=== PATIENT | female | born 1980 | race Caucasian/White ===

== ENCOUNTER 2021-06-29 09:05 | Day surgery (SDC) | payer MEDICARE ==
[2021-06-29] MEDS ORDERED: Depo-Medrol 40 MG/ML IM ONE (09:06)
[2021-06-29] MEDS ORDERED: LIDOCAINE HCL 2% 100 MG/5 ML IJ ONE (09:06)
[2021-06-29] MEDS ORDERED: Versed 2 MG/2 ML Injection ONE (10:00)
[2021-06-29] MEDS ORDERED: DIPRIVAN 200 MG/20 ML IV ONE (10:00)
[2021-06-29] MEDS ORDERED: Lactated Ringers 1,000 ML IV ONE (10:42)
--- NOTE | 2021-06-29 10:58 | XRAY ---
Indication: Bilateral L4-S1 MBB. Intraoperative fluoroscopy provided for 15 seconds. Single digital spot image submitted for interpretation demonstrates posterior needle tips projecting over the expected left and right L4-S1 nerve roots. Correlate with intraoperative findings/report.
--- NOTE | 2021-06-29 11:03 | XRAY ---
15 seconds of fluoroscopy was used in surgery for a bilateral L4-S1 MBB.
== END 2021-06-29 10:47 | disposition home or self-care (01) ==
LOC: SDC-PAIN 09:05
PROVIDERS: ATTEND Psychiatry & Neurology Pain Medicine
DX: M47.816 Spondylosis without myelopathy or radiculopathy, lumbar region (principal); E11.9 Type 2 diabetes mellitus without complications; Z79.899 Other long term (current) drug therapy
CPT/HCPCS: 64493; 64494; 72020; 77002; 82947; J1030; J2250; J2704

== ENCOUNTER 2021-09-21 08:41 | Day surgery (SDC) | payer MEDICARE ==
[2021-09-21] MEDS ORDERED: BUPIVACAINE 0.5% VIAL IJ ONE (08:42)
[2021-09-21] MEDS ORDERED: Xylocaine 1% Vial 30 ML PF IJ ONE (08:42)
[2021-09-21] MEDS ORDERED: Depo-Medrol 40 MG/ML IM ONE (08:42)
[2021-09-21] MEDS ORDERED: DIPRIVAN 200 MG/20 ML IV ONE (11:05)
[2021-09-21] MEDS ORDERED: Lactated Ringers 1,000 ML IV ONE (12:16)
--- NOTE | 2021-09-21 12:23 | XRAY ---
Indication: Right hip and right greater trochanter bursa injections. Intraoperative fluoroscopy provided for 28 seconds. 2 digital spot image submitted for interpretation demonstrates needle tip projecting lateral to right femur neck. Second needle tip lateral to greater trochanter. Small amount of contrast injected for both needle tip placement. Correlate with intraoperative findings/report.
--- NOTE | 2021-09-21 12:23 | XRAY ---
28 seconds fluoroscopy time in surgery for injections of the greater trochanter and intra-articular joint space of the right hip.
== END 2021-09-21 11:35 | disposition home or self-care (01) ==
LOC: SDC-PAIN 08:41
PROVIDERS: ATTEND Psychiatry & Neurology Pain Medicine
DX: M16.11 Unilateral primary osteoarthritis, right hip (principal); M70.61 Trochanteric bursitis, right hip; N18.30 Chronic kidney disease, stage 3 unspecified; E11.9 Type 2 diabetes mellitus without complications; I10 Essential (primary) hypertension; Z79.899 Other long term (current) drug therapy
CPT/HCPCS: 20610; 73502; 77002; 82947; J1030; J2001; J2704; Q9966

== ENCOUNTER 2021-12-14 08:23 | Day surgery (SDC) | payer MEDICARE ==
[2021-12-14] MEDS ORDERED: Depo-Medrol 40 MG/ML IM ONE (08:24)
[2021-12-14] MEDS ORDERED: BUPIVACAINE 0.5% VIAL IJ ONE (08:24)
[2021-12-14] MEDS ORDERED: Lactated Ringers 1,000 ML IV ONE (09:40)
[2021-12-14] MEDS ORDERED: DIPRIVAN 200 MG/20 ML IV ONE (10:08)
--- NOTE | 2021-12-14 12:31 | XRAY ---
Indication: Bilateral hip and bilateral greater trochanter bursa injections. Intraoperative fluoroscopy provided for 54 seconds. 4 digital spot image submitted for interpretation demonstrates needle tip projecting lateral to left/right femur necks and lateral to left/right greater trochanters. Small amount of contrast injected for all needle tip placement. Correlate with intraoperative findings/report.
--- NOTE | 2021-12-14 12:34 | XRAY ---
54 seconds fluoroscopy time in surgery for bilateral greater trochanter and intra-articular injections of the hips.
== END 2021-12-14 10:37 | disposition home or self-care (01) ==
LOC: SDC-PAIN 08:23
PROVIDERS: ATTEND Psychiatry & Neurology Pain Medicine
DX: M16.0 Bilateral primary osteoarthritis of hip (principal); M70.62 Trochanteric bursitis, left hip; M70.61 Trochanteric bursitis, right hip; E11.9 Type 2 diabetes mellitus without complications; Z79.899 Other long term (current) drug therapy
CPT/HCPCS: 20610; 73522; 77002; 82947; J1030; J2704; Q9966

== ENCOUNTER 2022-05-31 07:19 | Day surgery (SDC) | payer MEDICARE ==
[2022-05-31] MEDS ORDERED: Marcaine Mpf 0.5% Vial 30 Ml IJ ONE (07:20)
[2022-05-31] MEDS ORDERED: LIDOCAINE HCL 2% 100 MG/5 ML IJ ONE (07:20)
[2022-05-31] MEDS ORDERED: Depo-Medrol 40 MG/ML IM ONE (07:20)
[2022-05-31] MEDS ORDERED: XYLOCAINE-MPF 1% 5ML SDV IJ ONE (07:20)
[2022-05-31] MEDS ORDERED: DIPRIVAN 200 MG/20 ML IV ONE (09:03)
[2022-05-31] MEDS ORDERED: Lactated Ringers 1,000 ML IV ONE (10:50)
--- NOTE | 2022-05-31 11:33 | XRAY ---
Indication: Bilateral hip and bilateral greater trochanter bursa injection. Intraoperative fluoroscopy provided for 1 minute 12 seconds. 4 digital spot image submitted for interpretation demonstrates needle tip lateral to the left/right femur necks and lateral to the left/right greater trochanters. Small amount of contrast injected for all needle tip placement. Correlate with intraoperative findings/report.
--- NOTE | 2022-05-31 12:09 | XRAY ---
1 minute and 12 seconds of fluoroscopy was used in surgery for bilateral hips intra-articular and greater trochanteric bursa injections.
== END 2022-05-31 09:37 | disposition home or self-care (01) ==
LOC: SDC-PAIN 07:19
PROVIDERS: ATTEND Psychiatry & Neurology Pain Medicine
DX: M16.0 Bilateral primary osteoarthritis of hip (principal); M70.62 Trochanteric bursitis, left hip; M70.61 Trochanteric bursitis, right hip; E11.9 Type 2 diabetes mellitus without complications; Z79.899 Other long term (current) drug therapy
CPT/HCPCS: 20610; 73522; 77002; 82947; J1030; J2704; Q9966

== ENCOUNTER 2022-12-27 07:52 | Day surgery (SDC) | payer MEDICARE ==
[2022-12-27] MEDS ORDERED: BUPIVACAINE 0.5% VIAL IJ ONE (07:53)
[2022-12-27] MEDS ORDERED: Sodium Chloride 0.9(Preservative Free) 10 ML IJ ONE (07:53)
[2022-12-27] MEDS ORDERED: Depo-Medrol 40 MG/ML IM ONE (07:53)
[2022-12-27] MEDS ORDERED: DIPRIVAN 200 MG/20 ML IV ONE (09:16)
--- NOTE | 2022-12-27 10:35 | XRAY ---
Indication: Right L3-L5 transforaminal JOSE. Intraoperative fluoroscopy provided for 25 seconds. 3 digital spot image submitted for interpretation demonstrates posterior needle tips projecting over the expected right L3 and L4 nerve roots. Small amount of contrast injected for needle tip placement. Correlate with intraoperative findings/report.
--- NOTE | 2022-12-27 10:35 | XRAY ---
Indication: Right greater trochanter bursa injection. Intraoperative fluoroscopy provided for 18 seconds. Single digital spot image obtained prone submitted for interpretation demonstrates needle tip lateral to the right greater trochanter. Small amount of contrast injected for needle tip placement. Correlate with intraoperative findings/report.
--- NOTE | 2022-12-27 12:58 | XRAY ---
18 seconds of fluoroscopy was used in surgery for a right greater trochanteric bursa injection.
--- NOTE | 2022-12-27 12:58 | XRAY ---
25 seconds of fluoroscopy was used in surgery for a right L3-L5 JOSE.
[2022-12-27] MEDS ORDERED: Lactated Ringers 1,000 ML IV ONE (13:52)
== END 2022-12-27 09:00 | disposition home or self-care (01) ==
LOC: SDC-PAIN 07:52
PROVIDERS: ATTEND Psychiatry & Neurology Pain Medicine
DX: M54.16 Radiculopathy, lumbar region (principal); M70.61 Trochanteric bursitis, right hip; E11.9 Type 2 diabetes mellitus without complications; Z79.899 Other long term (current) drug therapy
CPT/HCPCS: 20610; 64483; 64484; 72100; 73501; 77002; 77003; 82947; J1030; J2704; Q9966

== ENCOUNTER 2023-03-07 07:55 | Day surgery (SDC) | payer MEDICARE ==
[2023-03-07] MEDS ORDERED: BUPIVACAINE 0.5% VIAL IJ ONE (07:56)
[2023-03-07] MEDS ORDERED: Depo-Medrol 40 MG/ML IM ONE (07:56)
[2023-03-07] MEDS ORDERED: DIPRIVAN 200 MG/20 ML IV ONE (08:47)
--- NOTE | 2023-03-07 12:02 | XRAY ---
Indication: Bilateral hip and bilateral greater trochanter bursa injections. Intraoperative fluoroscopy provided for 38 seconds. 4 digital spot images submitted for interpretation demonstrates needle tips projecting lateral to the left/right femur necks and lateral to the left/right greater trochanters. Small amount of contrast injected for all needle tip placement. Correlate with intraoperative findings/report.
--- NOTE | 2023-03-07 12:20 | XRAY ---
38 seconds of fluoroscopy was used in surgery for a bilateral intra-articular hip and greater trochanteric bursa injection.
[2023-03-07] MEDS ORDERED: Lactated Ringers 1,000 ML IV ONE (14:10)
== END 2023-03-07 08:57 | disposition home or self-care (01) ==
LOC: SDC-PAIN 07:55
PROVIDERS: ATTEND Psychiatry & Neurology Pain Medicine
DX: M16.0 Bilateral primary osteoarthritis of hip (principal); M70.62 Trochanteric bursitis, left hip; M70.61 Trochanteric bursitis, right hip; E11.9 Type 2 diabetes mellitus without complications; Z79.899 Other long term (current) drug therapy
CPT/HCPCS: 20610; 73522; 77002; 82947; J1030; J2704; Q9966

== ENCOUNTER 2023-05-09 06:07 | Day surgery (SDC) | payer MEDICARE ==
[2023-05-09] MEDS ORDERED: BUPIVACAINE 0.5% VIAL IJ ONE (06:08)
[2023-05-09] MEDS ORDERED: DIPRIVAN 200 MG/20 ML IV ONE (08:26)
--- NOTE | 2023-05-09 10:14 | XRAY ---
Indication: Bilateral L4-S1 MBB. Intraoperative fluoroscopy provided for 23 seconds. Single digital spot image submitted for interpretation demonstrates posterior needle tips projecting over the expected left and right L4-S1 nerve roots. Correlate with intraoperative findings/report.
--- NOTE | 2023-05-09 10:54 | XRAY ---
23 seconds of fluoroscopy was used in surgery for a bilateral L4-S1 MBB.
[2023-05-09] MEDS ORDERED: Lactated Ringers 1,000 ML IV ONE (13:33)
== END 2023-05-09 08:42 | disposition home or self-care (01) ==
LOC: SDC-PAIN 06:07
PROVIDERS: ATTEND Psychiatry & Neurology Pain Medicine
DX: M47.816 Spondylosis without myelopathy or radiculopathy, lumbar region (principal); E11.9 Type 2 diabetes mellitus without complications; Z79.899 Other long term (current) drug therapy
CPT/HCPCS: 64493; 64494; 72020; 77002; 82947; J2704

== ENCOUNTER 2023-06-13 07:10 | Day surgery (SDC) | payer MEDICARE ==
[2023-06-13] MEDS ORDERED: Depo-Medrol 40 MG/ML IM ONE (07:11)
[2023-06-13] MEDS ORDERED: BUPIVACAINE 0.5% VIAL IJ ONE (07:11)
[2023-06-13] MEDS ORDERED: DIPRIVAN 200 MG/20 ML IV ONE (09:42)
--- NOTE | 2023-06-13 10:32 | XRAY ---
Indication: Bilateral hip and bilateral greater trochanter bursa injection. Intraoperative fluoroscopy provided for 50 seconds. 4 digital spot images submitted for interpretation demonstrate needle tip projecting lateral to the left/right femur necks and left/right greater trochanters. Small amount of contrast injected for all needle tip placement. Correlate with intraoperative findings/report.
--- NOTE | 2023-06-13 11:53 | XRAY ---
50 seconds of fluoroscopy was used in surgery for a bilateral intra-articular hip and greater trochanteric bursa injection.
[2023-06-13] MEDS ORDERED: Lactated Ringers 1,000 ML IV ONE (13:33)
== END 2023-06-13 10:10 | disposition home or self-care (01) ==
LOC: SDC-PAIN 07:10
PROVIDERS: ATTEND Psychiatry & Neurology Pain Medicine
DX: M16.0 Bilateral primary osteoarthritis of hip (principal); M70.62 Trochanteric bursitis, left hip; M70.61 Trochanteric bursitis, right hip; E11.9 Type 2 diabetes mellitus without complications; Z79.899 Other long term (current) drug therapy
CPT/HCPCS: 20610; 73522; 77002; 82947; J1030; J2704; Q9966

== ENCOUNTER 2023-06-14 07:03 | Day surgery (SDC) | payer MEDICARE ==
[2023-06-14] MEDS ORDERED: LIDOCAINE HCL 1% 50 MG/5 ML VL PF IJ ONE (07:04)
[2023-06-14] MEDS ORDERED: BUPIVACAINE 0.5% VIAL IJ ONE (07:04)
[2023-06-14] MEDS ORDERED: Depo-Medrol 40 MG/ML IM ONE (07:04)
[2023-06-14] MEDS ORDERED: Versed 2 MG/2 ML Injection ONE (08:44)
[2023-06-14] MEDS ORDERED: DIPRIVAN 200 MG/20 ML IV ONE (08:44)
[2023-06-14] MEDS ORDERED: Lactated Ringers 1,000 ML IV ONE (08:57)
--- NOTE | 2023-06-14 09:50 | XRAY ---
Indication: Right L4-S1 RFA. Intraoperative fluoroscopy provided for 33 seconds. 4 digital spot images submitted for interpretation demonstrates posterior needle tips projecting over the expected right L4-S1 nerve roots. Correlate with intraoperative findings/report.
--- NOTE | 2023-06-14 10:02 | XRAY ---
33 seconds of fluoroscopy was used in surgery for a right L4-S1 RFA.
== END 2023-06-14 09:24 | disposition home or self-care (01) ==
LOC: SDC-PAIN 07:03
PROVIDERS: ATTEND Psychiatry & Neurology Pain Medicine
DX: M47.816 Spondylosis without myelopathy or radiculopathy, lumbar region (principal); E11.9 Type 2 diabetes mellitus without complications; Z79.899 Other long term (current) drug therapy
CPT/HCPCS: 64635; 64636; 72100; 77002; 82947; J1030; J2001; J2250; J2704

== ENCOUNTER 2023-06-20 07:35 | Day surgery (SDC) | payer MEDICARE ==
[2023-06-20] MEDS ORDERED: LIDOCAINE HCL 1% 50 MG/5 ML VL PF IJ ONE (07:36)
[2023-06-20] MEDS ORDERED: BUPIVACAINE 0.5% VIAL IJ ONE (07:36)
[2023-06-20] MEDS ORDERED: Depo-Medrol 40 MG/ML IM ONE ×2 (07:36)
[2023-06-20] MEDS ORDERED: DIPRIVAN 200 MG/20 ML IV ONE (09:10)
--- NOTE | 2023-06-20 10:09 | XRAY ---
Indication: Left L4-S1 RFA. Intraoperative fluoroscopy provided for 28 seconds. 4 digital spot image submitted for interpretation demonstrates posterior needle tips projecting over the expected left L4-S1 nerve roots. Correlate with intraoperative findings/report.
[2023-06-20] MEDS ORDERED: Lactated Ringers 1,000 ML IV ONE (10:44)
--- NOTE | 2023-06-20 12:26 | XRAY ---
28 seconds of fluoroscopy was used in surgery for a left L4-S1 RFA.
== END 2023-06-20 09:40 | disposition home or self-care (01) ==
LOC: SDC-PAIN 07:35
PROVIDERS: ATTEND Psychiatry & Neurology Pain Medicine
DX: M47.817 Spondylosis without myelopathy or radiculopathy, lumbosacral region (principal); E11.9 Type 2 diabetes mellitus without complications; Z79.899 Other long term (current) drug therapy
CPT/HCPCS: 64635; 64636; 72100; 77002; 82947; J1030; J2001; J2704

== ENCOUNTER 2023-11-07 06:54 | Day surgery (SDC) | payer MEDICARE ==
[2023-11-07] MEDS ORDERED: Depo-Medrol 40 MG/ML IM ONE (06:55)
[2023-11-07] MEDS ORDERED: BUPIVACAINE 0.5% VIAL IJ ONE (06:55)
[2023-11-07] MEDS ORDERED: Lactated Ringers 1,000 ML IV ONE (08:56)
[2023-11-07] MEDS ORDERED: DIPRIVAN 200 MG/20 ML IV ONE (09:31)
--- NOTE | 2023-11-07 12:03 | XRAY ---
Indication: Right hip and greater trochanter bursa injection. Intraoperative fluoroscopy provided for 32 seconds. 3 digital spot images submitted for interpretation demonstrates needle tip projecting lateral to right femur necks. Additional needle tips lateral to right greater trochanter. Small amount of contrast injected for needle tip placement. Correlate with intraoperative findings/report.
--- NOTE | 2023-11-07 12:33 | XRAY ---
32 seconds of fluoroscopy was used in surgery for a right intra-articular hip and greater trochanteric bursa injection.
== END 2023-11-07 09:59 | disposition home or self-care (01) ==
LOC: SDC-PAIN 06:54
PROVIDERS: ATTEND Psychiatry & Neurology Pain Medicine
DX: M16.11 Unilateral primary osteoarthritis, right hip (principal); M70.61 Trochanteric bursitis, right hip; E11.9 Type 2 diabetes mellitus without complications
CPT/HCPCS: 20610; 73502; 77002; 77003; 82947; J1030; J2704; Q9966

== ENCOUNTER 2023-12-26 06:56 | Day surgery (SDC) | payer MEDICARE ==
[2023-12-26] MEDS ORDERED: LIDOCAINE HCL 1% 50 MG/5 ML VL PF IJ ONE (06:57)
[2023-12-26] MEDS ORDERED: Decadron 4 MG INJ IV ONE (06:57)
[2023-12-26] MEDS ORDERED: DIPRIVAN 200 MG/20 ML IV ONE (09:16)
[2023-12-26] MEDS ORDERED: Lactated Ringers 1,000 ML IV ONE (09:57)
--- NOTE | 2023-12-26 10:25 | XRAY ---
Indication: Right piriformis injection. Intraoperative fluoroscopy provided for 11 seconds. Single digital spot image submitted for interpretation demonstrates posterior needle tip projecting over expected right piriformis. Small amount of contrast injected for needle tip placement. Correlate with intraoperative findings/report.
--- NOTE | 2023-12-26 10:39 | XRAY ---
11 seconds of fluoroscopy was used in surgery for a right piriformis injection.
== END 2023-12-26 09:40 | disposition home or self-care (01) ==
LOC: SDC-PAIN 06:56
PROVIDERS: ATTEND Psychiatry & Neurology Pain Medicine
DX: M79.18 Myalgia, other site (principal); E11.9 Type 2 diabetes mellitus without complications
CPT/HCPCS: 20552; 72170; 77002; 82947; J1100; J2001; J2704; Q9966

== ENCOUNTER 2024-08-20 08:11 | Day surgery (SDC) | payer MEDICARE ==
[2024-08-20] MEDS ORDERED: GELSYN-3 IU ONE (08:12)
[2024-08-20] MEDS ORDERED: BENADRYL 50 MG/ML ONE (10:21)
[2024-08-20] MEDS ORDERED: TORAdol 30 mg Injection ONE (10:22)
[2024-08-20] MEDS ORDERED: DIPRIVAN 200 MG/20 ML IV ONE (10:31)
--- NOTE | 2024-08-20 11:50 | XRAY ---
Indication: Left knee injection. Intraoperative fluoroscopy provided for 7 seconds. Single digital spot image submitted for interpretation demonstrates needle tip projecting over left femur intracondylar notch. Small amount of contrast injected for needle tip placement. Correlate with intraoperative findings/report.
--- NOTE | 2024-08-20 11:50 | XRAY ---
Indication: Right knee injection. Intraoperative fluoroscopy provided for 5 seconds. Single digital spot image submitted for interpretation demonstrates needle tip projecting over right femur intracondylar notch. Small amount of contrast injected for needle tip placement. Correlate with intraoperative findings/report.
--- NOTE | 2024-08-20 12:10 | XRAY ---
7 seconds of fluoroscopy was used in surgery for a left intra-articular knee injection.
--- NOTE | 2024-08-20 12:10 | XRAY ---
5 seconds of fluoroscopy was used in surgery for a right intra-articular knee injection.
== END 2024-08-20 11:02 | disposition home or self-care (01) ==
LOC: SDC-PAIN 08:11
PROVIDERS: ATTEND Psychiatry & Neurology Pain Medicine
DX: M17.0 Bilateral primary osteoarthritis of knee (principal); E11.9 Type 2 diabetes mellitus without complications
CPT/HCPCS: 20610; 73560; 77002; 82947; J1200; J1885; J2704; J7328; Q9966

== ENCOUNTER 2024-08-27 07:45 | Day surgery (SDC) | payer MEDICARE ==
[2024-08-27] MEDS ORDERED: GELSYN-3 IU ONE (07:46)
[2024-08-27] MEDS ORDERED: BENADRYL 50 MG/ML ONE (10:09)
[2024-08-27] MEDS ORDERED: DIPRIVAN 200 MG/20 ML IV ONE (10:48)
--- NOTE | 2024-08-27 11:44 | XRAY ---
Indication: Right knee injection. Intraoperative fluoroscopy provided for 6 seconds. Single digital spot image submitted for interpretation demonstrates needle tip projecting over right femur intercondylar notch. Small amount of contrast injected for needle tip placement. Correlate with intraoperative findings/report.
--- NOTE | 2024-08-27 11:44 | XRAY ---
4 seconds of fluoroscopy was used in surgery for a left intra-articular knee injection.
--- NOTE | 2024-08-27 11:45 | XRAY ---
6 seconds of fluoroscopy was used in surgery for a right intra-articular knee injection.
--- NOTE | 2024-08-27 11:45 | XRAY ---
Indication: Left knee injection. Intraoperative fluoroscopy provided for 4 seconds. Single digital spot image submitted for interpretation demonstrates needle tip projecting over left femur intercondylar notch. Small amount of contrast injected for needle tip placement. Correlate with intraoperative findings/report.
== END 2024-08-27 11:10 | disposition home or self-care (01) ==
LOC: SDC-PAIN 07:45
PROVIDERS: ATTEND Psychiatry & Neurology Pain Medicine
DX: M17.0 Bilateral primary osteoarthritis of knee (principal); E11.9 Type 2 diabetes mellitus without complications
CPT/HCPCS: 73560; 77002; 82947; J1200; J2704; J7328

== ENCOUNTER 2024-09-03 07:56 | Day surgery (SDC) | payer MEDICARE ==
[2024-09-03] MEDS ORDERED: GELSYN-3 IU ONE (07:57)
[2024-09-03] MEDS ORDERED: DIPRIVAN 200 MG/20 ML IV ONE (10:21)
--- NOTE | 2024-09-03 13:24 | XRAY ---
Indication: Left knee injection. Intraoperative fluoroscopy provided for 5 seconds. Single digital spot image submitted for interpretation demonstrates needle tip projecting over left femur intercondylar notch. Small amount of contrast injected for needle tip placement. Correlate with intraoperative findings/report.
--- NOTE | 2024-09-03 13:24 | XRAY ---
Indication: Right knee injection. Intraoperative fluoroscopy provided for 5 seconds. Single digital spot image submitted for interpretation demonstrates needle tip projecting over right femur intercondylar notch. Small amount of contrast injected for needle tip placement. Correlate with intraoperative findings/report.
--- NOTE | 2024-09-03 14:04 | XRAY ---
5 seconds of fluoroscopy was used in surgery for a right intra-articular knee injection.
--- NOTE | 2024-09-03 14:05 | XRAY ---
5 seconds of fluoroscopy was used in surgery for a left intra-articular knee injection.
== END 2024-09-03 10:55 | disposition home or self-care (01) ==
LOC: SDC-PAIN 07:56
PROVIDERS: ATTEND Psychiatry & Neurology Pain Medicine
DX: M17.0 Bilateral primary osteoarthritis of knee (principal); E11.9 Type 2 diabetes mellitus without complications
CPT/HCPCS: 20610; 73560; 77002; 82947; J2704; J7328; Q9966